=== PATIENT | female | born 1975 | race Caucasian/White ===

== ENCOUNTER 2024-03-01 21:02 | Outpatient (CLI) | payer OTHER, SELFPAY | END 2024-03-01 21:03 | disposition home or self-care (01) | LOC: SLEEP 21:04 | PROVIDERS: PCP Nurse Practitioner Family; Visit Provider Internal Medicine | DX: G47.33 Obstructive sleep apnea (adult) (pediatric) (principal) | CPT/HCPCS: 95810 ==